=== PATIENT | male | born 1975 | race Caucasian/White ===

== ENCOUNTER 2018-12-12 10:50 | Emergency (ER) | payer OTHER ==
[~2018-12-12] VITALS: Ht 180.3 cm; Wt 163.0 kg
[2018-12-12 11:59] LABS: BASOPHILS % 0.7 % (0.0-2.0); EOSINOPHILS % 2.3 % (0.0-5.0); HEMATOCRIT. 46.4 % (42.0-52.0); HEMOGLOBIN. 15.8 g/dL (14.0-18.0); LYMPHOCYTES % 23.5 % (20.0-50.0); MEAN CORPUSCULAR HEMOGLOBIN 29.8 pg (28.0-32.0); MEAN CORPUSCULAR VOLUME 87.4 fL (80.0-94.0); MEAN PLATELET VOLUME 6.6 fl (7.4-10.4); MONOCYTES % 11.3 % (2.0-8.0); NEUTROPHILS % 62.2 % (40.0-76.0); PLATELET 380 x1000/uL (130-400); RED BLOOD CELL COUNT 5.31 mill/uL (4.7-6.1); RED CELL DISTRIBUTION WIDTH 14.7 % (11.6-14.6)
[2018-12-12 12:06] LABS: PROTHROMBIN TIME 10.6 sec (9.6-11.0)
[2018-12-12 12:07] LABS: CHLORIDE 101 mEq/L (98-107)
[2018-12-12 12:43] LABS: CLARITY URINE CLEAR (CLEAR); COLOR URINE YELLOW (YELLOW); KETONES URINE NEGATIVE (NEGATIVE); LEUKOCYTE ESTERASE URINE NEGATIVE (NEGATIVE); NITRITE URINE NEGATIVE (NEGATIVE); OCCULT BLOOD URINE NEGATIVE (NEGATIVE); PROTEIN URINE NEGATIVE (NEGATIVE); SPECIFIC GRAVITY URINE 1.015 (1.005-1.030); UROBILINOGEN URINE 0.2 E.U./dL (0.2-1.0)
[2018-12-12] MEDS ORDERED: IOHEXOL-350 100 ML BOTTLE ONE (17:35)
[2018-12-12 19:00] VITALS: BP 123/76
== END 2018-12-12 19:20 | disposition home or self-care (01) ==
LOC: ER 10:50
DX: R60.9 Edema, unspecified (principal); E66.9 Obesity, unspecified; D64.9 Anemia, unspecified; F15.10 Other stimulant abuse, uncomplicated; F17.200 Nicotine dependence, unspecified, uncomplicated; Z98.890 Other specified postprocedural states; Z91.010 Allergy to peanuts
CPT/HCPCS: 36415; 71045; 71275; 80053; 81003; 83880; 84484; 85025; 85610; 93005; 93970; 99284; Q9967; Z7610

== ENCOUNTER 2024-01-21 04:08 | Emergency (ER) | payer OTHER ==
[~2024-01-21] VITALS: Ht 180.3 cm; Wt 126.0 kg
[2024-01-21 04:13] VITALS: O2SAT 97
[2024-01-21] MEDS: DIPHENHYDRAMINE 25MG CAPSULE PO ONE (04:30)
[2024-01-21] MEDS: FAMOTIDINE 20MG TABLET PO ONE (04:30)
[2024-01-21] MEDS ORDERED: DEXAMETHASONE 4MG TABLET PO ONE (04:30)
[2024-01-21] MEDS: DEXAMETHASONE 10 MG/ML VIAL PO NR (04:45)
[2024-01-21 05:40] VITALS: BP 135/66; PULSE 76; RESP 18; TEMP 98.6
[2024-01-21] MEDS ORDERED: EPIN0.3A3 IM (05:43)
[2024-01-21] MEDS ORDERED: DIPH25TA62 MT (05:43)
== END 2024-01-21 05:55 | disposition home or self-care (01) ==
LOC: ER 04:14
DX: T78.49XA Other allergy, initial encounter (principal); E11.9 Type 2 diabetes mellitus without complications; F15.90 Other stimulant use, unspecified, uncomplicated; D64.9 Anemia, unspecified; Z98.890 Other specified postprocedural states; Z91.010 Allergy to peanuts; Y92.89 Other specified places as the place of occurrence of the external cause
CPT/HCPCS: 99284; 71045; Q0163; J1100; J8540

== ENCOUNTER 2024-10-21 17:17 | Emergency (ER) | payer MEDICAID, OTHER ==
[~2024-10-21] VITALS: Ht 180.3 cm; Wt 113.0 kg
[~2024-10-21 17:17] MED LIST: DIPH25TA62 MT; EPIN0.3A3 IM
[2024-10-21 17:28] VITALS: O2SAT 98
[2024-10-21] MEDS ORDERED: SULF1TAB48 MT (21:21)
[2024-10-21] MEDS ORDERED: CEPH500C2 MT (21:21)
[2024-10-21] MEDS ORDERED: NAPR-1176 MT (21:21)
[2024-10-21 21:45] VITALS: BP 154/92; PULSE 97; RESP 16; TEMP 37; O2SAT 98
== END 2024-10-21 21:47 | disposition home or self-care (01) ==
LOC: ER 17:17
DX: L02.01 Cutaneous abscess of face (principal); E11.9 Type 2 diabetes mellitus without complications; F15.90 Other stimulant use, unspecified, uncomplicated; Z98.890 Other specified postprocedural states; Z79.899 Other long term (current) drug therapy
CPT/HCPCS: 99283